=== PATIENT | female | born 1980 ===

== ENCOUNTER 2016-05-09 08:32 | Emergency (ER) | payer OTHER ==
[2016-05-09 09:03] VITALS: BP 107/64
--- NOTE | 2016-05-09 10:56 | UC ---
Ear Complaint HPI - HPI Summary HPI Summary: FIVE DAYS OF LEFT EAR PAIN, NO FEVER, RADIATES TO LEFT THROAT - History of Current Complaint Chief Complaint: UCEar Stated Complaint: EAR PAIN SORE THROAT Time Seen by Provider: 05/09/16 09:59 Hx Obtained From: Patient Felix Last Menstrual Period: [id number] Onset/Duration: Gradual Onset, Lasting Days, Still Present Severity Initially: Mild Severity Currently: Moderate Pain Intensity: 0 Pain Scale Used: 0-10 Numeric Associated Signs/Symptoms: Positive: URI Symptoms - Allergies/Home Medications Allergies/Adverse Reactions: Allergies Allergy/AdvReac Type Severity Reaction Status Date / Time No Known Allergies Allergy Verified 05/09/16 09:17 Home Medications: Home Medications Ibuprofen TAB* [Advil TAB*] 400 05/09/16 [History] PMH/Surg Hx/FS Hx/Imm Hx Previously Healthy: Yes Cardiovascular History Of: Denies: Cardiac Disorders - Surgical History Surgical History: Yes Surgery Procedure, Year, and Place: [facility] 01/29 - Family History Known Family History: Negative: Respiratory Disease - Social History Occupation: Student Lives: With Family Alcohol Use: None Substance Use Type: None Smoking Status (MU): Never Smoked Tobacco - Immunization History Most Recent Influenza Vaccination: 01/03/15 Most Recent Tetanus Shot: 11/01/14 Most Recent Pneumonia Vaccination: none Review of Systems Constitutional: Negative Skin: Negative Eyes: Negative ENT: Ear Ache Respiratory: Negative Cardiovascular: Negative Gastrointestinal: Negative Genitourinary: Negative Motor: Negative Neurovascular: Negative Musculoskeletal: Negative Neurological: Negative Psychological: Negative All Other Systems Reviewed And Are Negative: Yes Physical Exam Triage Information Reviewed: Yes Appearance: Well-Appearing, No Pain Distress, Well-Nourished Vital Signs: Initial Vital Signs Temp 99.1 F 05/09/16 08:58 Pulse 64 05/09/16 08:58 Resp 18 05/09/16 08:58 BP 107/64 05/09/16 08:58 Pulse Ox 100 05/09/16 08:58 Vital Signs Reviewed: Yes Eye Exam: Normal ENT: Positive: Normal ENT inspection, Hearing grossly normal, Pharynx normal, TMs normal, TM dull, TM red - LEFT, Other: - LEFT EAC EDEMA Dental Exam: Normal Neck exam: Normal Neck: Positive: Supple, Nontender, No Lymphadenopathy Respiratory Exam: Normal Respiratory: Positive: Chest non-tender, Lungs clear, Normal breath sounds, No respiratory distress Cardiovascular Exam: Normal Cardiovascular: Positive: RRR, No Murmur Abdominal Exam: Normal Musculoskeletal Exam: Normal Musculoskeletal: Positive: Strength Intact Neurological Exam: Normal Psychological Exam: Normal Skin Exam: Normal Ear Complaint Course/Dx - Differential Dx/Diagnosis Differential Diagnosis/HQI/PQRI: Otitis Externa, Otitis Media, URI Provider Diagnoses: LEFT OTITIS MEDIA. LEFT OTITIS EXTERNA Discharge - Discharge Plan Condition: Stable Disposition: HOME Prescriptions: Amoxicillin/Clavulanate TAB* [Augmentin TAB 875*] 875 mg PO BID #20 tab Neomyc/Polym/HC 1% OTIC SUSP* [Cortisporin Otic Susp 1%*] 4 drop LEFT EAR TID # 1 btl Patient Education Materials: Otitis Externa (ED), Otitis Media (ED) Referrals: [facility] [Outside] [facility] [Outside]
== END 2016-05-09 10:21 | disposition home or self-care (01) ==
LOC: UCEAST 08:32
DX: H66.92 Otitis media, unspecified, left ear (principal); H60.92 Unspecified otitis externa, left ear
CPT/HCPCS: 99211; G0463

== ENCOUNTER 2016-11-03 11:30 | Emergency (ER) | payer OTHER ==
[2016-11-03 11:52] VITALS: BP 123/72
--- NOTE | 2016-11-03 13:10 | UC ---
Complaint Female HPI - HPI Summary HPI Summary: ONSET OF DYSURIA AND FREQUENCY 5 DAYS AGO AFTER INTERCOURSE. NO FEVER, BACK PAIN OR NAUSEA. FEELS SIMILAR TO HER LAST UTI. ALSO C/O FEELING FATIGUED OVER THE PAST 6 MONTHS OR SO. IS SLEEPING WELL BUT NOT FEELING REFRESHED. ENERGY LEVEL IS DOWN. DENIES RECENT CHANGES IN WEIGHT OR IN SKIN OR HAIR QUALITY. - History Of Current Complaint Chief Complaint: UCGU Stated Complaint: UTI COMPLAINT Time Seen by Provider: 11/03/16 13:01 Hx Obtained From: Patient Hx Last Menstrual Period: 3 wks ago Onset/Duration: Gradual Onset, Lasting Days, Still Present Timing: Constant Severity Initially: Mild Severity Currently: Moderate Pain Intensity: 0 - PAIN ONLY WITH URINATION Pain Scale Used: 0-10 Numeric Character: Burning Aggravating Factor(s): Urination - Allergies/Home Medications Allergies/Adverse Reactions: Allergies Allergy/AdvReac Type Severity Reaction Status Date / Time No Known Allergies Allergy Verified 11/03/16 11:52 Home Medications: Home Medications Pumpkin Seed-Soy Germ [Azo Bladder Control/Go-Le] 1 cap PO ONCE 11/03/16 [ History Confirmed 11/03/16] PMH/Surg Hx/FS Hx/Imm Hx Previously Healthy: Yes - Surgical History Surgical History: Yes Surgery Procedure, Year, and Place: 01/29 - Family History Known Family History: Positive: Hypertension, Diabetes Negative: Respiratory Disease - Social History Alcohol Use: None Substance Use Type: None Smoking Status (MU): Never Smoked Tobacco - Immunization History Most Recent Influenza Vaccination: 01/03/15 Most Recent Tetanus Shot: 11/01/14 Most Recent Pneumonia Vaccination: none Review of Systems Constitutional: Fatigue Respiratory: Negative Cardiovascular: Negative Gastrointestinal: Negative Genitourinary: Dysuria, Frequency, Urgency All Other Systems Reviewed And Are Negative: Yes Physical Exam Triage Information Reviewed: Yes Appearance: Well-Appearing, No Pain Distress, Well-Nourished Vital Signs: Initial Vital Signs Temp 97.8 F 11/03/16 11:47 Pulse 79 11/03/16 11:47 Resp 12 11/03/16 11:47 BP 123/72 11/03/16 11:47 Pulse Ox 100 11/03/16 11:47 Vital Signs Reviewed: Yes Eyes: Positive: Conjunctiva Clear ENT: Positive: Hearing grossly normal Neck: Positive: Supple Respiratory: Positive: No respiratory distress, No accessory muscle use Cardiovascular: Positive: Pulses Normal Abdomen Description: Positive: Soft Musculoskeletal: Positive: No Edema Neurological: Positive: Alert Psychological: Positive: Age Appropriate Behavior Skin: Negative: rashes Diagnostics - Laboratory Diagnostic Studies Completed/Ordered: URINE DIP SP. GR. 1.025, 1+ LEUKS, TRACE BLOOD, POS NITRITES Complaint Female Dx - Differential Dx/Diagnosis Provider Diagnoses: 1. UTI. 2. FATIGUE Discharge - Discharge Plan Condition: Stable Disposition: HOME Prescriptions: Sulfamethox/Trimethoprim DS* [Bactrim DS 800/160 TAB*] 1 tab PO BID #10 tab Patient Education Materials: Urinary Tract Infection in Women (ED), Fatigue (ED ) Referrals: No Primary Care Phys,NOPCP [Primary Care Provider] - Additional Instructions: YOU NEED TO ESTABLISH WITH A PCP IN ORDER TO FULLY EVALUATE YOUR FATIGUE. CALL THE NUMBER BELOW FOR ASSISTANCE IN ESTABLISHING WITH A PCP An additional resource available to assist in finding the appropriate physician for your health care needs is the [facility] ([facility]). You may contact them by calling [phone].
--- NOTE | 2016-11-05 18:20 | UC ---
Progress - Progress Note Progress Note: PLS CALL PT. URINE CX GREW OUT E. COLI RESISTANT TO BACTRIM. KEFLEX SENT TO [facility]. PLS ADVISE PT TO STOP BACTRIM AND START KEFLEX. I ATTEMPTED TO CALL PT BUT NO ANSWER AND NO VOICE MAILBOX. - DAMON MORENO MD
== END 2016-11-03 13:15 | disposition home or self-care (01) ==
LOC: UCEAST 11:30
DX: N39.0 Urinary tract infection, site not specified (principal); B96.20 Unspecified Escherichia coli [E. coli] as the cause of diseases classified elsewhere; R53.83 Other fatigue
CPT/HCPCS: 81003; 87077; 87086; 87186; 99212; G0463

== ENCOUNTER 2018-09-21 07:33 | Emergency (ER) | payer OTHER ==
[2018-09-21 07:43] VITALS: BP 107/80
--- NOTE | 2018-09-21 08:27 | UC ---
Back Pain HPI - HPI Summary HPI Summary: 38-year-old female presents to the urgent care with chief complaining of lateral back pain, right more than the left, and urinary frequency. Patient reports that she thinks that she has a UTI. Patient denies any vaginal discharge or bleeding. Patient reports no nausea and vomiting. LMP was 2 weeks ago. She has no other complaints. - History of Current Complaint Chief Complaint: UCGU Stated Complaint: UTI Time Seen by Provider: 09/21/18 07:37 Hx Obtained From: Patient Hx Last Menstrual Period: 09/10/18 Onset/Duration: Gradual Onset Timing: Intermittent Severity Initially: Mild Pain Intensity: 3 - Allergies/Home Medications Allergies/Adverse Reactions: Allergies Allergy/AdvReac Type Severity Reaction Status Date / Time No Known Allergies Allergy Verified 09/21/18 07:38 Home Medications: Home Medications NK [No Home Medications Reported] 09/21/18 [History Confirmed 09/21/18] PMH/Surg Hx/FS Hx/Imm Hx Previously Healthy: Yes - Surgical History Surgical History: Yes Surgery Procedure, Year, and Place: 01/29 - Family History Known Family History: Positive: Hypertension, Diabetes Negative: Respiratory Disease - Social History Alcohol Use: None Substance Use Type: None Smoking Status (MU): Never Smoked Tobacco - Immunization History Most Recent Influenza Vaccination: 01/03/15 Most Recent Tetanus Shot: 11/01/14 Most Recent Pneumonia Vaccination: none Review of Systems All Other Systems Reviewed And Are Negative: Yes Constitutional: Positive: Negative Skin: Positive: Negative Eyes: Positive: Negative ENT: Positive: Negative Respiratory: Positive: Negative Cardiovascular: Positive: Negative Gastrointestinal: Positive: Negative Genitourinary: Positive: Negative Motor: Positive: Negative Neurovascular: Positive: Negative Musculoskeletal: Positive: Other: - back pain Neurological: Positive: Negative Psychological: Positive: Negative Is Patient Immunocompromised?: No Physical Exam - Summary Physical Exam Summary: VITAL SIGNS: Reviewed. GENERAL: Patient is a well developed and nourished female who is lying comfortable in the stretcher. Patient is not in any acute respiratory distress. HEAD AND FACE: No signs of trauma. No ecchymosis, hematomas or skull depressions. No sinus tenderness. EYES: PERRLA, EOMI x 2, No injected conjunctiva, no nystagmus. EARS: Hearing grossly intact. Ear canals and tympanic membranes are within normal limits. MOUTH: Oropharynx within normal limits. NECK: Supple, trachea is midline, no adenopathy, no JVD, no carotid bruit, no c- spine tenderness, neck with full ROM. CHEST: Symmetric, no tenderness at palpation LUNGS: Clear to auscultation bilaterally. No wheezing or crackles. CVS: Regular rate and rhythm, S1 and S2 present, no murmurs or gallops appreciated. ABDOMEN: Soft, non-tender. No signs of distention. No rebound no guarding, and no masses palpated. Bowel sounds are normal. EXTREMITIES: FROM in all major joints, no edema, no cyanosis or clubbing. NEURO: Alert and oriented x 3. No acute neurological deficits. Speech is normal and follows commands. SKIN: Dry and warm back: No costovertebral angle tenderness, no lumbar spine tenderness, no rashes , no ecchymosis or hematomas. Triage Information Reviewed: Yes Appearance: Well-Appearing Vital Signs: Initial Vital Signs Temp 96.9 F 09/21/18 07:38 Pulse 79 09/21/18 07:38 Resp 18 09/21/18 07:38 BP 107/80 09/21/18 07:38 Pulse Ox 100 09/21/18 07:38 Vital Signs Reviewed: Yes Back Pain Course/Dx - Course Course Of Treatment: urinalysis in the urgent care is negative. I believe that her pain is secondary to muscular skeletal pain. At this point the patient is asymptomatic. She did not require any any pain medications. Patient was advised to follow up with the primary care physician, or if the symptoms worsen she should go to the ER or return to the urgent care for further workup and management. Patient understands and agrees. She is hemodynamically stable alert and oriented 3. - Differential Dx/Diagnosis Provider Diagnosis: Back pain Discharge - Sign-Out/Discharge Documenting (check all that apply): Patient Departure All imaging exams completed and their final reports reviewed: No Studies - Discharge Plan Condition: Stable Disposition: HOME Patient Education Materials: Back Pain (ED) Referrals: No Primary Care Phys,NOPCP [Primary Care Provider] - [facility] [place] [facility] [Outside] Additional Instructions: Take Ibuprofen or Tylenol for back pain Increase your fluid intake F/U with PCP in the next 2-3 days Return to the if symptoms worsen - Billing Disposition and Condition Condition: STABLE Disposition: Home
== END 2018-09-21 08:36 | disposition home or self-care (01) ==
LOC: UCEAST 07:33
DX: M54.9 Dorsalgia, unspecified (principal); R35.0 Frequency of micturition
CPT/HCPCS: 81003; 84702; 99211; G0463

== ENCOUNTER 2018-10-02 08:32 | Emergency (ER) | payer OTHER ==
[2018-10-02 08:53] VITALS: BP 113/80
--- NOTE | 2018-10-02 09:48 | UC ---
Abdominal Pain Female HPI - HPI Summary HPI Summary: 38 yo female with left flank pain x 2-3 day no fever or chills no n/v/d no change in bowel habits no UTI symptoms seen here earlier in month with similar symptoms abd feels bloated - History of Current Complaint Chief Complaint: UCGU Stated Complaint: LT SIDE/BACK PAIN Time Seen by Provider: 10/02/18 09:38 Hx Obtained From: Patient Hx Last Menstrual Period: 09/05/18 Onset/Duration: Gradual Onset, Lasting Days Timing: Constant Severity Initially: Moderate Severity Currently: Moderate Pain Intensity: 7 Pain Scale Used: 0-10 Numeric Location: Other - left flank Character: Aching, Colicy Aggravating Factor(s): Movement Alleviating Factor(s): Nothing Associated Signs and Symptoms: Positive: Negative Allergies/Adverse Reactions: Allergies Allergy/AdvReac Type Severity Reaction Status Date / Time No Known Allergies Allergy Verified 10/02/18 08:47 PMH/Surg Hx/FS Hx/Imm Hx Previously Healthy: Yes - Surgical History Surgical History: Yes Surgery Procedure, Year, and Place: 01/29 - Family History Known Family History: Positive: Hypertension, Diabetes Negative: Respiratory Disease - Social History Alcohol Use: None Substance Use Type: None Smoking Status (MU): Never Smoked Tobacco - Immunization History Most Recent Influenza Vaccination: 01/03/15 Most Recent Tetanus Shot: 11/01/14 Most Recent Pneumonia Vaccination: none Review of Systems All Other Systems Reviewed And Are Negative: Yes Constitutional: Positive: Negative Skin: Positive: Negative Eyes: Positive: Negative ENT: Positive: Negative Respiratory: Positive: Negative Cardiovascular: Positive: Negative Gastrointestinal: Positive: Abdominal Pain - left flank, Other - bloating Genitourinary: Positive: Negative Motor: Positive: Negative Neurovascular: Positive: Negative Musculoskeletal: Positive: Negative Neurological: Positive: Negative Psychological: Positive: Negative Physical Exam Triage Information Reviewed: Yes Appearance: Well-Appearing, No Pain Distress, Well-Nourished Vital Signs: Initial Vital Signs Temp 98.5 F 10/02/18 08:47 Pulse 81 10/02/18 08:47 Resp 18 10/02/18 08:47 BP 113/80 10/02/18 08:47 Pulse Ox 100 10/02/18 08:47 Vital Signs Reviewed: Yes Eyes: Positive: Conjunctiva Clear ENT: Positive: Hearing grossly normal. Negative: Nasal congestion, Nasal drainage, Trismus, Muffled voice, Hoarse voice Neck: Positive: Supple, Nontender, No Lymphadenopathy Respiratory: Positive: Lungs clear, Normal breath sounds, No respiratory distress, No accessory muscle use Cardiovascular: Positive: RRR, No Murmur Abdomen Description: Negative: Nontender - tender LLQ, No Organomegaly, CVA Tenderness (R), CVA Tenderness (L), Hepatomegaly, McBurney's Point Tenderness, Pulsatile Mass, Splenomegaly Bowel Sounds: Positive: Present Musculoskeletal: Positive: No Edema Neurological: Positive: Alert Psychological Exam: Normal Skin Exam: Normal Diagnostics - Laboratory Lab Results: UA - - Radiology No standard instances Radiology Interpretation Completed By: Radiologist Summary of Radiographic Findings: CT abd and pelvis was negative Abd Pain Female Course/Dx - Differential Dx/Diagnosis Provider Diagnosis: Left flank pain Discharge - Sign-Out/Discharge Documenting (check all that apply): Patient Departure All imaging exams completed and their final reports reviewed: Yes - Discharge Plan Condition: Stable Disposition: HOME Prescriptions: Naproxen [Naprosyn 500 mg tab] 500 mg PO Q12H PRN #20 tablet PRN Reason: Pain Patient Education Materials: Flank Pain (ED) Referrals: [facility] [Outside] - 3 Days (recheck early next week if not better) Additional Instructions: blood work pending urine culture pending To ER for new or worsening symptoms CT scan of abdomen and pelvis was negative - Billing Disposition and Condition Condition: STABLE Disposition: Home
[2018-10-02 12:48] LABS: ABS Lymphocytes 1.9 10^3/ul (1.0-4.8); ABS Monocytes 0.6 10^3/ul (0-0.8); ABS Neutrophils 5.9 10^3/ul (1.5-7.7); Eosinophil % 0.6 %; Hematocrit 41 % (35-47); Hemoglobin 13.5 g/dL (12.0-16.0); Lymphocyte % 22.9 %; Mean Corpuscular HGB Conc 33 g/dL (31-36); Mean Corpuscular Hemoglobin 29 pg (27-31); Mean Corpuscular Volume 89 fL (80-97); Mean Platelet Volume 8.5 fL (7.4-10.4); Platelet Count 162 10^3/uL (150-450); Red Blood Count 4.59 10^6 /uL (3.70-4.87); Red Cell Distribution Width 13 % (10-15); White Blood Count 8.5 10^3/uL (3.5-10.8)
[2018-10-02 13:14] LABS: Albumin 4.2 g/dL (3.2-5.2); Albumin/Globulin Ratio 1.7 (1-3); BUN/Creatinine Ratio 15.8 (8-20); Calcium 8.7 mg/dL (8.6-10.3); EGFR African American 144.4 (>60); EGFR Non-African American 119.3 (>60); Globulin 2.5 g/dL (2-4); Total Bilirubin 0.4 mg/dL (0.2-1.0); Total Protein 6.7 g/dL (6.4-8.9)
== END 2018-10-02 11:05 | disposition home or self-care (01) ==
LOC: UCEAST 08:32
DX: R10.9 Unspecified abdominal pain (principal)
CPT/HCPCS: 36415; 74176; 80053; 81003; 85025; 87086; 99212; G0463